=== PATIENT | female | born 1985 | race Caucasian/White ===

== ENCOUNTER 2017-03-09 10:29 | Outpatient (CLI) | payer OTHER | END 2017-03-09 10:30 | disposition home or self-care (01) | LOC: DTY/OP 10:29 | PROVIDERS: ATTEND Surgery | DX: E66.01 Morbid (severe) obesity due to excess calories (principal) | CPT/HCPCS: 97802 ==

== ENCOUNTER 2017-03-21 15:20 | Outpatient (CLI) | payer OTHER | END 2017-03-21 15:21 | disposition home or self-care (01) | LOC: LABBT 15:20 | PROVIDERS: ATTEND Surgery | DX: Z01.818 Encounter for other preprocedural examination (principal); E66.01 Morbid (severe) obesity due to excess calories ==

== ENCOUNTER 2017-03-21 16:15 | Inpatient (IN) | payer OTHER ==
[2017-03-21 15:41] VITALS: BMI 40.9
[2017-04-25] MEDS ORDERED: Bupivacaine HCl 0.5%/Epinephrine 1:200,000/PF 30 ml Vial ONE (10:42)
[2017-04-25] MEDS ORDERED: Heparin 5,000 UNITS/ML VIAL ONE (10:43)
[2017-04-25] MEDS ORDERED: CEFAZOLIN/Water 2 GM/20 ML SYRINGE ONE (10:43)
[2017-04-25] MEDS ORDERED: Midazolam HCl 2 mg/2 ml Vial ONE ×2 (10:58→11:23)
[2017-04-25] MEDS ORDERED: Fentanyl 250 MCG/5 ML VIAL ONE (11:23)
[2017-04-25] MEDS ORDERED: Glycopyrrolate 0.2 MG/ML 5 ML SYRINGE ONE (11:50)
[2017-04-25] MEDS ORDERED: Propofol 200 MG/20 ML VIAL ONE (11:50)
[2017-04-25] MEDS ORDERED: Lidocaine 2% PF 10 ML AMP (For Epidural Use) ONE (11:50)
[2017-04-25] MEDS ORDERED: Dexamethasone 20 MG/5 ML VIAL ONE (11:50)
[2017-04-25] MEDS ORDERED: Ondansetron HCl/PF 4 MG/2 ML Vial ONE (11:50)
[2017-04-25] MEDS ORDERED: Ketorolac Tromethamine 30 MG/ML VIAL ONE (11:50)
[2017-04-25] MEDS ORDERED: Fentanyl 100 MCG/2 ML VIAL ONE ×2 (13:27→13:58)
[2017-04-25] MEDS ORDERED: Promethazine HCl 25 MG/ML VIAL ONE (13:41)
[2017-04-25] MEDS ORDERED: Meperidine HCl/PF 25 MG/ML VIAL ONE (13:54)
[2017-04-25] MEDS ORDERED: methylPREDNISolone Acetate 40 mg/ml Vial ONE (13:55)
[2017-04-25] MEDS ORDERED: D5 1/2 NS w/20 mEq KCL 1,000 ML ONE (13:56)
[2017-04-25] MEDS ORDERED: Ondansetron HCl/PF 4 MG/2 ML Vial IVP PRN ×2 (13:57→14:12)
[2017-04-25] MEDS ORDERED: Promethazine HCl 25 MG/ML VIAL IM/IV PRN (13:57)
[2017-04-25] MEDS ORDERED: Zolpidem Tartrate 5 MG TAB PO PRN ×2 (14:01→14:03)
[2017-04-25] MEDS ORDERED: diphenhydrAMINE 50 MG/ML VIAL IVP PRN ×3 (14:01→14:12)
[2017-04-25] MEDS ORDERED: Morphine CADD 1 MG/ML CADD IVPB PRN (14:01)
[2017-04-25] MEDS ORDERED: diphenhydrAMINE 25 MG CAP PO PRN ×2 (14:01→14:03)
[2017-04-25] MEDS ORDERED: Promethazine HCl 25 MG/ML VIAL IM PRN ×3 (14:01→14:12)
[2017-04-25] MEDS ORDERED: Naloxone HCl 0.4 mg/ml Vial IV PRN ×2 (14:01→14:03)
[2017-04-25] MEDS ORDERED: diphenhydrAMINE 50 MG/ML VIAL IM PRN (14:03)
[2017-04-25] MEDS ORDERED: Ketorolac Tromethamine 30 MG/ML VIAL IVP PRN (14:03)
[2017-04-25] MEDS ORDERED: hydrALAZINE 20 MG/ML VIAL SLOW IVP PRN (14:12)
[2017-04-25] MEDS ORDERED: Dextrose 5% in Water 1,000 ML IV PRN (14:12)
[2017-04-25] MEDS ORDERED: Dextrose 50% Abboject 50 ML SYRINGE SLOW IVP PRN (14:12)
[2017-04-25] MEDS ORDERED: Hydrocodone-Acetamin 15 ML UDCUP PO PRN (14:12)
[2017-04-25] MEDS ORDERED: Communication Order-Pharmacy FS SCH ×2 (14:15)
--- NOTE | 2017-04-25 15:10 | OP ---
DATE OF OPERATION: 04/25/2017 PREOPERATIVE DIAGNOSIS: Morbid obesity with a BMI of 40. POSTOPERATIVE DIAGNOSIS: Morbid obesity with a BMI of 40. PROCEDURES: 1. Laparoscopic sleeve gastrectomy with [place] staple line reinforcements and 38-Amharic bougie 2. EGD. SURGEON: Faizan Marrero M.D. ANESTHESIA: General. ESTIMATED BLOOD LOSS: Minimal. COMPLICATIONS: None. SPECIMEN: Stomach. FINDINGS: Normal postoperative esophagogastroduodenoscopy. INDICATIONS: The patient is a 31-year-old female who presents for weight loss surgery. She has att ended our informational seminar. She had her preop dietary counseling and education for the surgery . She understands risks, benefits, alternatives to sleeve gastrectomy. She gives consent. TECHNIQUE: The patient was taken to the operating room and placed supine on the table. After gener al anesthetic was obtained, bilateral legs and arms were double strapped to bariatric table. OG tub e was used to decompress the stomach. Left subcostal 5-mm Optiview trocar was placed in the usual f ashion and high-flow pneumoperitoneum was obtained. Left and right abdominal 12-mm port and a right subcostal 5-mm port were placed under direct visualization. A 5 mm ports made at the xiphoid and N athansen was used to raise the liver off the GE junction. Short gastrics were taken down from midbo dy of stomach to the left xander of the diaphragm using LigaSure. Short gastrics were taken down to a distance 6 cm proximal to the pylorus. OG tube was removed and a 38 bougie was brought in and its tip left in the antrum of the stomach. Multiple loads of an [place] stapling device were used to pe rform the sleeve. The first was fired at a distance of 6 cm proximal to the pylorus angled up towar ds the incisura. Multiple loads were then fired up along the bougie and stomach was completely coppola sected at the angle of His. Care was taken to avoid involvement of the GE junction. Bougie was rem higinio. EGD scope was passed into the esophagus, stomach to the level of the duodenum without obstruc tion or stricture. There is no air leakage through the staple line. EGD scope was pulled and remov ed. The stomach was removed from the left abdominal incision. This fascial defect was closed using GraNee needle and 0 Vicryl tie. A 0.5% Marcaine was used to infiltrate all incisions. Nathansen r emoved under direct visualization without bleeding. All ports were removed under camera visualizati on. Pneumoperitoneum was let down. Vicryl was used to close the fascial defect from left abdominal incision. All incisions were irrigated and closed using 4-0 Monocryl and Dermabond. The patient w as en route to recovery in stable condition. All instrument counts, needle counts, and lap counts w ere correct.
[2017-04-25] MEDS: Ondansetron HCl/PF 4 MG/2 ML Vial IVP PRN (16:36)
[2017-04-25] MEDS: D5 1/2 NS w/20 mEq KCL 1,000 ML IV SCH ×2 (16:39→22:30)
[2017-04-25] MEDS: Acetaminophen 1,000 MG in Premix Bag 1 BAG IVPB SCH (19:28)
[2017-04-25] MEDS ORDERED: Enoxaparin Sodium 40 MG/0.4 ML SYRINGE SC SCH (21:00)
[2017-04-26] MEDS: Acetaminophen 1,000 MG in Premix Bag 1 BAG IVPB SCH ×2 (00:18→05:11)
[2017-04-26] MEDS: D5 1/2 NS w/20 mEq KCL 1,000 ML IV SCH (05:12)
[2017-04-26] MEDS: Ondansetron HCl/PF 4 MG/2 ML Vial IVP PRN (05:13)
[2017-04-26 05:41] LABS: #Lymphocytes 2.1 thou/uL (1.20-3.40); #Monocytes 0.9 thou/uL (0.11-0.59); #Neutrophils 8.7 thou/uL (1.40-6.50); %Eosinophils 0.1 % (0.0-10.0); %Monocytes 7.8 % (0.0-10.0); Hematocrit 37.4 % (36.0-47.0); Mean Platelet Volume 7.4 fL (7.4-10.4); White Blood Cell (WBC) Count 11.7 thou/uL (4.8-10.8)
[2017-04-26 06:00] LABS: Anion Gap 13 mmol/L (10-20); BUN (Urea Nitrogen) 5 mg/dL (7.0-18.7); Calc. Creatinine Clearance 235 mL/min (70-130); Calcium 8.5 mg/dL (7.8-10.44); Carbon Dioxide 21 mmol/L (22-29); Chloride 107 mmol/L (98-107); Estimated GFR-MDRD Greater than 90
--- NOTE | 2017-04-26 09:52 | RAD ---
LIMITED UPPER GI WITH 15 ML GASTROGRAFIN: Date: 04/26/17 HISTORY: 31-year-old female with recent vertical sleeve gastrectomy. FINDINGS: The patient drank 15 mL of Gastrografin in a single sip under fluoroscopy. There was prompt passage of contrast from the esophagus into the gastric remnant and duodenum. No contrast extravasation is s een. IMPRESSION: No evidence of obstruction or leak. POS: [facility]
[2017-04-26] MEDS ORDERED: Pantoprazole 40 MG VIAL IVP SCH ×2 (10:30→21:00)
[2017-04-26 12:19] VITALS: BP 112/77; TEMP 98.5
[2017-04-26] MEDS ORDERED: Ondansetron ODT 4 MG TAB PO PRN (12:30)
[2017-04-26] MEDS ORDERED: Simethicone Chewable 80 MG TAB PO PRN (13:42)
[2017-04-26] MEDS ORDERED: Simethicone Chewable 80 MG TAB PO SCH (13:45)
[2017-04-27] MEDS ORDERED: Pantoprazole 40 MG VIAL IVP SCH (09:00)
== END 2017-04-26 14:21 | disposition home or self-care (01) | DRG 621 ==
LOC: SURG A 04-25 10:17
PROVIDERS: ADMIT Surgery; ATTEND Surgery
PROC: 0DB64Z3 Excision of Stomach, Percutaneous Endoscopic Approach, Vertical (ICD-10-PCS; principal; 2017-04-25)
PROC: 0DJ08ZZ Inspection of Upper Intestinal Tract, Via Natural or Artificial Opening Endoscopic (ICD-10-PCS; 2017-04-25)
DX: E66.01 Morbid (severe) obesity due to excess calories (principal); F32.9 Major depressive disorder, single episode, unspecified; Z68.41 Body mass index [BMI] 40.0-44.9, adult; F41.9 Anxiety disorder, unspecified
CPT/HCPCS: 36415; 74241; 80048; 85025; 88307; 88312; 94760; A4216; C9113; J0131; J0670; J1030; J1100; J1644; J1650; J1885; J2001; J2175; J2250; J2274; J2405; J2550; J2704; J3010; Q0162

== ENCOUNTER 2017-04-26 19:10 | Observation (INO) | payer BC, SELFPAY ==
[2017-04-26] MEDS ORDERED: diphenhydrAMINE 50 MG/ML VIAL IVP PRN (19:24)
[2017-04-26] MEDS ORDERED: Acetaminophen 1,000 MG in Premix Bag 1 BAG IVPB PRN (19:24)
[2017-04-26] MEDS ORDERED: Morphine PF 1 MG/ML SYR IVP PRN (19:24)
[2017-04-26] MEDS ORDERED: hydrALAZINE 20 MG/ML VIAL SLOW IVP PRN (19:24)
[2017-04-26] MEDS ORDERED: Dextrose 50% Abboject 50 ML SYRINGE SLOW IVP PRN (19:24)
[2017-04-26] MEDS ORDERED: MORPHINE 10 MG/ML SYRINGE IV PRN (19:24)
[2017-04-26] MEDS ORDERED: Dextrose 5% in Water 1,000 ML IV PRN (19:24)
[2017-04-26] MEDS ORDERED: ALPRAZolam 0.5 MG TAB PO PRN (19:24)
[2017-04-26] MEDS ORDERED: Ondansetron HCl/PF 4 MG/2 ML Vial IVP PRN (19:39)
[2017-04-26] MEDS ORDERED: Sodium Chloride 0.9% 1,000 ML IV SCH (19:45)
[2017-04-26] MEDS: Ondansetron HCl/PF 4 MG/2 ML Vial IVP PRN (20:30)
[2017-04-26] MEDS: D5 1/2 NS w/20 mEq KCL 1,000 ML IV SCH (20:41)
[2017-04-26] MEDS ORDERED: Enoxaparin Sodium 40 MG/0.4 ML SYRINGE SC SCH (21:00)
[2017-04-26] MEDS: Promethazine HCl 25 MG/ML VIAL IM PRN (21:42)
[2017-04-26 22:45] VITALS: BMI 40.9
[2017-04-27] MEDS: Promethazine HCl 25 MG/ML VIAL IM PRN ×3 (01:05→14:36)
[2017-04-27 05:33] LABS: #Lymphocytes 2.3 thou/uL (1.20-3.40); #Monocytes 0.6 thou/uL (0.11-0.59); #Neutrophils 5.8 thou/uL (1.40-6.50); %Basophils 0.2 % (0.0-1.0); %Eosinophils 0.2 % (0.0-10.0); %Lymphocytes 26.9 % (21.0-51.0); %Monocytes 6.6 % (0.0-10.0); Hematocrit 35.5 % (36.0-47.0); Mean Platelet Volume 7.5 fL (7.4-10.4); White Blood Cell (WBC) Count 8.7 thou/uL (4.8-10.8)
[2017-04-27] MEDS: D5 1/2 NS w/20 mEq KCL 1,000 ML IV SCH (05:34)
[2017-04-27] MEDS: Ondansetron HCl/PF 4 MG/2 ML Vial IVP PRN ×2 (05:35→13:30)
[2017-04-27 05:44] LABS: Anion Gap 8 mmol/L (10-20); BUN (Urea Nitrogen) 5 mg/dL (7.0-18.7); Calc. Creatinine Clearance 227 mL/min (70-130); Calcium 8.4 mg/dL (7.8-10.44); Carbon Dioxide 27 mmol/L (22-29); Chloride 107 mmol/L (98-107); Estimated GFR-MDRD Greater than 90
[2017-04-27] MEDS ORDERED: Potassium Chloride 20 MEQ/100 ML PREMIX BAG IVPB SCH (07:30)
--- NOTE | 2017-04-27 08:21 | HP ---
CHIEF COMPLAINT: Ms. Eckert called me last night after she was discharged. As soon as she got home she developed intractable nausea, vomiting, was having abdominal pain, unable to even do sips of liq uids. I brought her back in, direct admitted her to the hospital for IV fluids. She feels much bet ter this morning. PAST MEDICAL HISTORY/PAST SURGICAL HISTORY/MEDICATIONS: See previous H\T\P. REVIEW OF SYSTEMS: Otherwise, negative. PHYSICAL EXAMINATION: VITAL SIGNS: Blood pressure 131/79, pulse 82. She is afebrile. HEENT: Sclerae are anicteric. Oropharynx clear. NECK: No lymphadenopathy. CHEST: Clear. HEART: Regular rate and rhythm. ABDOMEN: Soft, appropriately tender. No guarding or rebound. Incisions healing well without infec tion. LABORATORY AND X-RAY FINDINGS: White blood cell count is 8, hemoglobin 11, platelet count is 303 wi th normal differential. Sodium 139, potassium 3.3, creatinine 0.62, glucose 110. ASSESSMENT: Nausea, vomiting, dehydration, status post sleeve. PLAN: Readmitted to the hospital, feels better this morning. We will see how she does with a liqui d diet this morning. She may be discharged home after lunch. I added pantoprazole and Phenergan to her home meds.
[2017-04-27] MEDS ORDERED: Pantoprazole 40 MG VIAL IVP SCH (09:00)
[2017-04-27] MEDS ORDERED: FLUoxetine HCl 20 MG CAP PO SCH (09:00)
[2017-04-27 14:17] VITALS: BP 128/86; TEMP 98.6
[2017-04-27] MEDS ORDERED: Hydrocodone-Acetamin 15 ML UDCUP PO PRN (19:24)
== END 2017-04-27 15:20 | disposition home or self-care (01) ==
LOC: SURG A 19:10
PROVIDERS: ADMIT Surgery; ATTEND Surgery
DX: R11.2 Nausea with vomiting, unspecified (principal); E86.0 Dehydration; Z98.84 Bariatric surgery status; Z87.891 Personal history of nicotine dependence
CPT/HCPCS: 36415; 80048; 85025; 94760; 96361; 96365; 96366; 96372; 96375; 96376; C9113; G0378; J1650; J2270; J2405; J2550; J3480

== ENCOUNTER 2018-04-09 13:19 | Emergency (ER) | payer BC ==
[2018-04-09] MEDS ORDERED: Metoclopramide HCl 10 MG/2 ML VIAL ONE (13:45)
[2018-04-09] MEDS ORDERED: Ketorolac Tromethamine 30 MG/ML VIAL ONE (13:45)
[2018-04-09] MEDS ORDERED: diphenhydrAMINE 50 MG/ML VIAL ONE (13:45)
[2018-04-09 14:10] LABS: BHCG - Serum Negative (NEGATIVE); Pregs Control Background? CLEAR/WHITE (CLR/WHITE); Pregs Control Bar Appear? YES (CONTROL BAR)
[2018-04-09 14:17] LABS: Anion Gap 15 mmol/L (10-20); BUN (Urea Nitrogen) 10 mg/dL (7.0-18.7); Calc. Creatinine Clearance 0 mL/min (70-130); Calcium 9.1 mg/dL (7.8-10.44); Carbon Dioxide 24 mmol/L (22-29); Chloride 106 mmol/L (98-107); Estimated GFR-MDRD Greater than 90; Glucose 94 mg/dL (70-105); Potassium 3.9 mmol/L (3.5-5.1); Sodium 141 mmol/L (136-145)
== END 2018-04-09 15:33 | disposition home or self-care (01) ==
LOC: SCSER 13:19
DX: R51 Headache (principal); Z79.899 Other long term (current) drug therapy; F41.9 Anxiety disorder, unspecified
CPT/HCPCS: 80048; 84703; 96365; 96366; 96375; J1200; J1885; J2765

== ENCOUNTER 2018-04-17 10:31 | Outpatient (CLI) | payer BC ==
--- NOTE | 2018-04-17 13:36 | MRI ---
NONCONTGRAST ENHANCED MRI IMAGES OF BRAIN: HISTORY: Patient with headaches which are weekly. FINDINGS: Multiplanar, multisequence noncontrast-enhanced MRI images of the brain obtained. MRI images demonstrate the brain to be unremarkable. No evidence of intracranial masses, hemorrhages , strokes, or contusions seen. Ventricles are of normal size. No evidence of areas of diffusion res triction seen. No evidence of brain parenchymal abnormality seen. The ventricles are of normal size . There does appear to be minimal right frontal and mid and left posterior ethmoid sinus mucosal thi ckening. IMPRESSION: Some mild paranasal sinus disease. No evidence of acute intracranial abnormality is seen. No eviden ce of areas of strokes or intracranial masses or lesions seen. POS: [facility]
== END 2018-04-17 10:32 | disposition home or self-care (01) ==
LOC: TBSIIMAG 10:31
PROVIDERS: ATTEND Family Medicine
DX: G43.011 Migraine without aura, intractable, with status migrainosus (principal); J32.9 Chronic sinusitis, unspecified
CPT/HCPCS: 70551